=== PATIENT | female | born 1970 | race Caucasian/White ===

== ENCOUNTER → 2017-09-02 | Outpatient (CLI) | payer OTHER ==
[~2017-09-02] MED LIST: AMLO-114 PO; BUPR150T7 PO; CEFD1CAP14 PO; HYDR12.55 PO; PRLSR20 PO; TYLOTC500 PO
== END | disposition home or self-care (01) ==
LOC: C.LAB1850 13:22
PROVIDERS: ATTEND Physician Assistant
DX: E05.90 Thyrotoxicosis, unspecified without thyrotoxic crisis or storm (principal)

== ENCOUNTER → 2017-09-30 | Outpatient (CLI) | payer OTHER | END | disposition home or self-care (01) | LOC: C.LABBFT 14:46 | PROVIDERS: ATTEND Physician Assistant | DX: E05.00 Thyrotoxicosis with diffuse goiter without thyrotoxic crisis or storm (principal) ==

== ENCOUNTER → 2017-10-27 | Outpatient (CLI) | payer OTHER | END | disposition home or self-care (01) | LOC: C.LABBFT 11:51 | PROVIDERS: ATTEND Internal Medicine Endocrinology, Diabetes & Metabolism | DX: E05.90 Thyrotoxicosis, unspecified without thyrotoxic crisis or storm (principal) ==

== ENCOUNTER → 2017-11-11 | Outpatient (CLI) | payer OTHER | END | disposition home or self-care (01) | LOC: C.LABBFT 14:17 | PROVIDERS: ATTEND Internal Medicine Endocrinology, Diabetes & Metabolism | DX: E05.90 Thyrotoxicosis, unspecified without thyrotoxic crisis or storm (principal) ==

== ENCOUNTER → 2017-12-16 | Outpatient (CLI) | payer OTHER | END | disposition home or self-care (01) | LOC: C.LABBFT 08:23 | PROVIDERS: ATTEND Internal Medicine Endocrinology, Diabetes & Metabolism | DX: E05.90 Thyrotoxicosis, unspecified without thyrotoxic crisis or storm (principal) ==

== ENCOUNTER → 2018-03-02 | Outpatient (CLI) | payer OTHER ==
[~2018-03-02] MED LIST changes: -AMLO-114 PO; +AMLO10TA3 PO
== END | disposition home or self-care (01) ==
LOC: C.LABBFT 09:12
PROVIDERS: ATTEND Internal Medicine Endocrinology, Diabetes & Metabolism
DX: E05.00 Thyrotoxicosis with diffuse goiter without thyrotoxic crisis or storm (principal)

== ENCOUNTER → 2018-03-17 | Outpatient (CLI) | payer OTHER | END | disposition home or self-care (01) | LOC: C.LABBFT 14:33 | PROVIDERS: ATTEND Internal Medicine Endocrinology, Diabetes & Metabolism | DX: E05.90 Thyrotoxicosis, unspecified without thyrotoxic crisis or storm (principal) ==

== ENCOUNTER 2020-09-27 10:25 | Inpatient (IN) ==
--- NOTE | 2020-09-27 10:56 | Emergency Department Note ---
History of Present Illness General Chief complaint: Leg Injury/Pain Stated complaint: CELLULITIS IN RIGHT LEG Time Seen by Provider: 09/27/20 10:33 History of Present Illness Maximum Pain Intensity: 5 This is a 50-year-old female that presents to the emergency department via private vehicle with complaints of "cellulitis on right leg". The patient states that she was placed on Bactrim for what she believes was an upper respiratory tract infection and then notes the following day she developed right anterior lower leg cellulitis/rash. She notes that the same thing happened about a year ago. The rash developed about 7 days ago. She was placed on Keflex at that time and has been on both antibiotics up until yesterday when she finished the Bactrim but has been continuing the Keflex. She notes that the redness has not improved much during that time. She denies any fevers, chills, nausea or vomiting. She denies any other areas of redness or rashes to the body. She denies any lesions within the mouth or mucous membranes. She rates her overall discomfort the right lower extremity is a 5/10. She notes increased warmth to the area. She notes a large amount of swelling to the area as well. Home Medications Medication Instructions Recorded Confirmed Type hydrochlorothiazide 12.5 mg PO QAM 05/31/18 09/27/20 History omeprazole 20 mg PO PM 05/31/18 09/27/20 History albuterol sulfate [Ventolin HFA] 2 puff INHALATION Q6H PRN 02/20/19 09/27/20 History amlodipine 5 mg PO BID 09/27/20 09/27/20 History atenolol 25 mg PO DAILY PRN 09/27/20 09/27/20 History cephalexin 500 mg PO QID 09/27/20 09/27/20 History cholecalciferol (vitamin D3) 25 mcg PO PM 09/27/20 09/27/20 History [Vitamin D3] diphenhydramine-acetaminophen 1 tab PO HS PRN 09/27/20 09/27/20 History [Tylenol PM Extra Strength] fluticasone propionate 1 spray INTRANASAL DAILY PRN 09/27/20 09/27/20 History hydroxyzine HCl 25 mg PO HS PRN 09/27/20 09/27/20 History levothyroxine 175 mcg PO DAILYBB 09/27/20 09/27/20 History loratadine [Claritin] 10 mg PO PM 09/27/20 09/27/20 History meloxicam 15 mg PO PM 09/27/20 09/27/20 History Allergies Allergy/AdvReac Type Severity Reaction Status Date / Time clindamycin Allergy Severe HIVES Verified 02/20/19 10:32 lisinopril Allergy Intermediate COUGH Verified 02/20/19 10:32 amoxicillin Allergy Unknown Rash Verified 02/20/19 10:32 Penicillins Allergy Unknown Rash Verified 02/20/19 10:32 adhesive AdvReac Unknown TAPE Verified 02/20/19 10:32 SENSITIVITY Past Med/Surg History Medical History Anxiety Double vision REASON FOR PROCEDURE GERD (gastroesophageal reflux disease) Graves disease WITH EXOPHTHALMOS; ENDOCRINE MONITORING Hypertension Surgical History H/O tubal ligation History of section History of cholecystectomy History of laparoscopy History of myringotomy BILATERAL Hx of oral surgery Family History Sister Multiple sclerosis Mother Diabetes Hypertension Gout Father Stroke Social History Smoking Status: Former smoker Second Hand Exposure: No; Hx Alcohol Use: No Hx Substance Use: No Preferred Language: Zimbabwean Communication Ability: Effective Hand Cigar Maker Required: Yes Beliefs That Will Affect Care: None Current Living Situation: Family Feels Safe at Home: Yes Safety Concerns: Feels Safe At This Time Assistive Devices: Glasses Review of Systems A total of 10 systems reviewed and were otherwise negative Physical Exam Vital Signs Vital Signs - 24 hr 09/27/20 10:30 09/27/20 12:26 Temperature 36.5 C Temperature Source Temporal Artery Scan Pulse Rate 66 Pulse Rate [Apical] 71 Respiratory Rate 18 18 Respiratory Effort / Characteristics Non-Labored Respiratory Depth Normal Respiratory Pattern Regular Blood Pressure 169/88 H Blood Pressure [Right Arm] 170/80 H Blood Pressure Mean 115 Blood Pressure Mean [Right Arm] 110 Blood Pressure Position Sitting Pulse Oximetry 96 96 Oxygen Delivery Method Room Air Room Air Sepsis Recent Fever Within 48 Hours No Sepsis New/Unexplained Change in Mental Status No Sepsis Action Taken by Nursing No Action Required VITAL SIGNS - Vital signs and nursing notes were reviewed. Hypertensive, otherwise stable. GENERAL -50-year-old female appearing her stated age who is in no acute distress. Communicates well with provider and answers questions appropriately. SKIN -there is a diffuse area of erythema to the right anterior guan region i nferiorly. This does track medially and laterally overlying this region. There is a faint outline of purple skin marker and the erythema certainly has extended beyond this in some regions. There is no fluctuance or abscess but certainly there is increased warmth to the area and circumferential edema. HEAD - NC/AT. EYES - Sclera anicteric. EARS - No deformities of external structures noted on gross examination bilaterally. NOSE - Midline and without cyanosis. No epistaxis or purulent drainage noted. MOUTH/OROPHARYNX - Without perioral cyanosis. NECK - Neck with FROM. No nuchal rigidity. LUNGS - Chest wall symmetric without accessory muscle use, intercostals retractions, or central cyanosis. Normal vesicular breath sounds CTA B/L. No wheezes, rales, or rhonchi appreciated. CARDIAC - RRR with S1/S2. No murmur, rubs, or gallops appreciated. EXTREMITIES - No clubbing or peripheral cyanosis. Right lower extremity edema with skin noted as above. No break in the integument. No fluctuance or evidence of abscess. This does not seem to track proximal to the right knee. She is neurovascularly intact in the right lower extremity. +5/5 strength noted in UE/LE bilaterally. NEUROLOGIC - Cranial nerves II through XII grossly intact. PSYCH - A&O, and cooperates fully with examiner. Pt is very pleasant and interacts well with examiner. Course Administered Medications Discontinued Medications Amlodipine Besylate (Amlodipine Besylate 5 Mg Tab) 5 mg PO NOW ONE Stop: 09/27/20 13:45 Last Admin: 09/27/20 14:37 Dose: 5 mg Documented by: [id number] Hydrochlorothiazide (Hydrochlorothiazide 25 Mg Tab) 12.5 mg PO NOW STA Stop: 09/27/20 13:45 Last Admin: 09/27/20 14:37 Dose: 12.5 mg Documented by: [id number] Ceftriaxone Sodium (Rocephin) 2,000 mg in 70 mls @ 140 mls/hr IV NOW STA Stop: 09/27/20 12:44 Last Infusion: 09/27/20 13:11 Dose: 0 mls/hr Documented by: [id number] Admin: 09/27/20 12:41 Dose: 140 mls/hr Documented by: [id number] Medical Decision Making Laboratory Data Result diagrams: 09/27/20 10:50 09/27/20 10:50 Lab Results 09/27/20 09/27/20 09/27/20 Range/Units 10:50 10:50 10:50 WBC 9.02 (4.8-10.8) K/uL RBC 4.25 (4.2-5.4) M/uL Hgb 12.1 (12.0-16.0) g/dL Hct 35.8 L (37-47) % MCV 84.2 (80-100) fL MCH 28.5 (25-34) pg MCHC 33.8 (32-36) g/dL RDW Std Deviation 42.9 (36.4-46.3) fL RDW Coeff of Sylvain 14.0 (11.5-14.5) % Plt Count 369 (130-400) K/uL MPV 9.5 (7.4-10.4) fL Immature Gran % (Auto) 0.2 % Neut % (Auto) 70.3 % Lymph % (Auto) 21.7 % [place] % (Auto) 4.7 % Eos % (Auto) 2.8 % Baso % (Auto) 0.3 % Neut # (Auto) 6.34 (1.4-6.5) K/uL Lymph # (Auto) 1.96 (1.2-3.4) K/uL [place] # (Auto) 0.42 (0.11-0.59) K/uL Eos # (Auto) 0.25 (0-0.5) K/uL Baso # (Auto) 0.03 (0-0.2) K/uL Immature Gran # (Auto) 0.02 (0.00-0.02) K/uL ESR 57 H (0-21) mm/hr Sodium 140 (136-145) mmol/L Potassium 3.8 (3.5-5.1) mmol/L Chloride 109 H (98-107) mmol/L Carbon Dioxide 24 (21-32) mmol/L Anion Gap 7.0 (3-11) BUN 18 (7-18) mg/dl Creatinine 0.82 (0.6-1.2) mg/dl Est Cr Clr Drug Dosing 125.6 ml/min Est GFR ( Amer) 98.1 Est GFR (Non-Af Amer) 84.6 BUN/Creatinine Ratio 22.4 H (10-20) Glucose 99 (70-99) mg/dl Calcium 8.7 (8.5-10.1) mg/dl Total Bilirubin 0.2 (0.2-1) mg/dl AST 11 L (15-37) U/L ALT 18 (12-78) U/L Alkaline Phosphatase 85 (45-117) U/L C-Reactive Protein 3.01 H (0-0.29) mg/dl Total Protein 7.0 (6.4-8.2) gm/dl Albumin 3.2 L (3.4-5.0) gm/dl Globulin 3.8 (2.5-4.0) gm/dl Albumin/Globulin Ratio 0.8 L (0.9-2) COVID-19 Eval Order SARS-CoV-2, RNA, NAAT (NEGATIVE) 09/27/20 09/27/20 Range/Units 12:42 12:42 WBC (4.8-10.8) K/uL RBC (4.2-5.4) M/uL Hgb (12.0-16.0) g/dL Hct (37-47) % MCV (80-100) fL MCH (25-34) pg MCHC (32-36) g/dL RDW Std Deviation (36.4-46.3) fL RDW Coeff of Sylvain (11.5-14.5) % Plt Count (130-400) K/uL MPV (7.4-10.4) fL Immature Gran % (Auto) % Neut % (Auto) % Lymph % (Auto) % [place] % (Auto) % Eos % (Auto) % Baso % (Auto) % Neut # (Auto) (1.4-6.5) K/uL Lymph # (Auto) (1.2-3.4) K/uL [place] # (Auto) (0.11-0.59) K/uL Eos # (Auto) (0-0.5) K/uL Baso # (Auto) (0-0.2) K/uL Immature Gran # (Auto) (0.00-0.02) K/uL ESR (0-21) mm/hr Sodium (136-145) mmol/L Potassium (3.5-5.1) mmol/L Chloride (98-107) mmol/L Carbon Dioxide (21-32) mmol/L Anion Gap (3-11) BUN (7-18) mg/dl Creatinine (0.6-1.2) mg/dl Est Cr Clr Drug Dosing ml/min Est GFR ( Amer) Est GFR (Non-Af Amer) BUN/Creatinine Ratio (10-20) Glucose (70-99) mg/dl Calcium (8.5-10.1) mg/dl Total Bilirubin (0.2-1) mg/dl AST (15-37) U/L ALT (12-78) U/L Alkaline Phosphatase (45-117) U/L C-Reactive Protein (0-0.29) mg/dl Total Protein (6.4-8.2) gm/dl Albumin (3.4-5.0) gm/dl Globulin (2.5-4.0) gm/dl Albumin/Globulin Ratio (0.9-2) COVID-19 Eval [facility] SARS-CoV-2, RNA, NAAT POSITIVE A* (NEGATIVE) Imaging Data Radiologist's Impression: RIGHT LOWER EXTREMITY VENOUS DOPPLER CLINICAL HISTORY: Right leg pain. COMPARISON STUDY: Right lower extremity venous Doppler ultrasound June 16, 2015. TECHNIQUE: Sonography of the deep venous system of the right lower extremity was performed. Compression and augmentation were evaluated. FINDINGS: The right common femoral, superficial femoral and popliteal veins were compressible. Augmentation was normal. Flow was shown within the deep calf vessels. Note is made of a 3.3 x 2.5 x 1.1 cm right popliteal cyst. IMPRESSION: 1. No evidence of deep venous thrombus within the right lower extremity. 2. 3.3 x 2.5 x 1.1 cm suspected right popliteal cyst. ACT 112: Negative or not required by law. Electronically signed by: Simon Lopez M.D. 09/27/2020 11:53 AM MDM Narrative Patient was seen and evaluated as above in room C 11. Review was performed of nursing notes and vital signs. I did review pertinent previous visits and patient history. After obtaining a thorough history and physical examination the above work up was performed. Patient presents to us today with erythema to the right anterior distal right lower extremity. Vital signs were overall stable. She is nontoxic in appearance. Presentation most consistent with that of likely cellulitis with differential to include that of drug eruption/SJS from Bactrim. No evidence of SJS at this time. No mucous membrane involvement. Options of care were discussed with the patient. She is nontoxic on examination. IV access established. Labs were drawn. There is no leukocytosis or significant anemia. No emergent metabolic disturbance. Inflammatory markers are elevated. Covid testing performed secondary to possible inpatient management and this was found to be positive. Ultrasound negative for DVT. Patient notes that she did test positive in early July for COVID-19 and I suspect that this is likely residual from that time do not believe that she is acutely infectious with Covid. I do believe that the patient should be admitted for further evaluation and management to include IV antibiotics noting per sistence with very little improvement despite antibiotic course of the suspected cellulitis. At this time believe this to be most likely cellulitis. Patient amenable to plan of care. Case discussed with the hospitalist. Please refer to further documentation regarding her stay. Case was discussed with the attending physician. GCS: 15 In the evaluation and treatment of this patient the following differential diagnoses were entertained: Cellulitis, SJS, TENS, drug eruption, contact dermatitis, DVT, among others. Impression & Plan Cellulitis of right lower extremity Discharge Plan Visit Data Chief Complaint: Leg Injury/Pain Stated Complaint: CELLULITIS IN RIGHT LEG ED Provider: Pratik Arias ED Midlevel Provider: Emil Yu Discharge Problem: Cellulitis of right lower extremity Patient Disposition: Admitted As Inpatient Condition: Good Discharge Instructions Interventions: ED Discharge Assessment Last Done: 09/27/20 15:47
[2020-09-27 11:17] LABS: Basophils # (auto) 0.03 K/uL (0-0.2); Basophils % (auto) 0.3 %; Eosinophils # (auto) 0.25 K/uL (0-0.5); Eosinophils % (auto) 2.8 %; Hematocrit (blood only) 35.8 % (37-47); Hemoglobin 12.1 g/dL (12.0-16.0); Immature Granulocytes # (auto) 0.02 K/uL (0.00-0.02); Immature Granulocytes % (auto) 0.2 %; Lymphocytes # (auto) 1.96 K/uL (1.2-3.4); Lymphocytes % (auto) 21.7 %; Mean Corpuscular Hemoglobin 28.5 pg (25-34); Mean Corpuscular Hgb Conc 33.8 g/dL (32-36); Mean Corpuscular Volume 84.2 fL (80-100); Mean Platelet Volume 9.5 fL (7.4-10.4); Monocytes # (auto) 0.42 K/uL (0.11-0.59); Monocytes % (auto) 4.7 %; Neutrophils # (auto) 6.34 K/uL (1.4-6.5); Neutrophils % (auto) 70.3 %; Platelet Count 369 K/uL (130-400); RDW Standard Deviation 42.9 fL (36.4-46.3); Red Blood Count 4.25 M/uL (4.2-5.4); White Blood Count 9.02 K/uL (4.8-10.8)
[2020-09-27 11:48] LABS: Albumin Level 3.2 gm/dl (3.4-5.0); BUN Creatinine Ratio 22.4 (10-20); C Reactive Protein 3.01 mg/dl (0-0.29); Calcium 8.7 mg/dl (8.5-10.1); Creatinine Clr Calc Pharmacy 125.6 ml/min; Est GFR (African American) 98.1; Est GFR (Non-African American) 84.6; Potassium 3.8 mmol/L (3.5-5.1)
[2020-09-27 11:50] LABS: Albumin Globulin Ratio 0.8 (0.9-2); Bilirubin,Total 0.2 mg/dl (0.2-1); Globulin 3.8 gm/dl (2.5-4.0)
--- NOTE | 2020-09-27 11:54 | Ultrasound Report ---
RIGHT LOWER EXTREMITY VENOUS DOPPLER CLINICAL HISTORY: Right leg pain. COMPARISON STUDY: Right lower extremity venous Doppler ultrasound June 16, 2015. TECHNIQUE: Sonography of the deep venous system of the right lower extremity was performed. Compress ion and augmentation were evaluated. FINDINGS: The right common femoral, superficial femoral and popliteal veins were compressible. Augme ntation was normal. Flow was shown within the deep calf vessels. Note is made of a 3.3 x 2.5 x 1.1 cm right popliteal cyst. IMPRESSION: 1. No evidence of deep venous thrombus within the right lower extremity. 2. 3.3 x 2.5 x 1.1 cm suspected right popliteal cyst. ACT 112: Negative or not required by law. Electronically signed by: Simon Lopez M.D. 09/27/2020 11:53 AM
[2020-09-27] MEDS ORDERED: cefTRIAXone SODIUM 2,000 MG/70 ML BAG IV STA (12:15)
--- NOTE | 2020-09-27 13:43 | History & Physical Report ---
Date of Service September 27, 2020 Assessment & Plan (1) Cellulitis of right lower extremity: Pt is 50 y/o F with PMH Graves disease, HTN, anxiety presented to ER with c/o right leg redness x 1 week. Was treated with Bactrim for sinusitis starting on 09/19/20 and following day developed right leg redness. No significant improvement with 5 days of Keflex. Finished Bactrim yesterday. Denies fever/chills. RLE appears consistent with cellulitis. DDX: Drug reaction from Bactrim Afebrile, Vitals stable. No leukocytosis. ESR: 57, CRP: 3 Doppler RLE negative for DVT In ER treated with ceftriaxone IV Will continue ceftriaxone Pt now off Bactrim. Continue to monitor for any additional rashes or worsening. If would develop consider steroids for drug reaction CBC, BMP in am (2) History of COVID-19: Pt with h/o testing positive COVID 19 in 07/12/2020 Todays preadmission covid test positive, likely secondary to recent infection in 07/2020 (3) Hypertension: Pt didn't have meds today Dose morning meds Continue amlodipine, HCTZ (4) Graves disease: S/P surgery. On replacement therapy Continue levothyroxine (5) GERD (gastroesophageal reflux disease): Continue PPI DVT Prophylaxis -Low risk, Ambulate Full Code as per discussion with pt Follows with Dr Bobbi Mathews for routine care Pt was seen and care coordinated with Dr Hernandez. See addendum History of Present Illness Chief Complaint: Right leg redness Primary Care Provider: Dr Bobbi Mathews Pt is 50 y/o F with PMH Graves disease, HTN, anxiety presented to ER with c/o right leg redness. Pt with h/o sinusitis symptoms 2 weeks ago and was treated with doxycycline without relief. Was started on Bactrim 09/19/20. The following day started with redness to right lower leg. Was seen at urgent care and started on Keflex as well. Noted some minimal improvement of leg erythema however is still present. Finished Bactrim yesterday. Has had 5 days of Keflex. Denies fever/chills. Leg is tender to palpation. Denies injury/trauma. Reports nasal congestion has completely resolved. Pt reports prior history developing leg redness after taking Bactrim one year ago as well. Denies fever/chills, diaphoresis, N/V/D/C, ZEPEDA, dizziness, syncope, vision changes, neck pain, CP, SOB, orthopnea, palpitations, cough, sore throat, choking, otalgia, rhinorrhea, abdominal pain, paresthesias, weakness, extremity weakness, other rashes, urinary symptoms. Pt with h/o testing positive COVID 19 in 07/12/2020. Allergies Allergy/AdvReac Type Severity Reaction Status Date / Time clindamycin Allergy Severe HIVES Verified 02/20/19 10:32 lisinopril Allergy Intermediate COUGH Verified 02/20/19 10:32 amoxicillin Allergy Unknown Rash Verified 02/20/19 10:32 Penicillins Allergy Unknown Rash Verified 02/20/19 10:32 adhesive AdvReac Unknown TAPE Verified 02/20/19 10:32 SENSITIVITY Home Medications Medication Instructions Recorded Confirmed Type hydrochlorothiazide 12.5 mg PO QAM 05/31/18 09/27/20 History omeprazole 20 mg PO PM 05/31/18 09/27/20 History albuterol sulfate [Ventolin HFA] 2 puff INHALATION Q6H PRN 02/20/19 09/27/20 History amlodipine 5 mg PO BID 09/27/20 09/27/20 History atenolol 25 mg PO DAILY PRN 09/27/20 09/27/20 History cephalexin 500 mg PO QID 09/27/20 09/27/20 History cholecalciferol (vitamin D3) 25 mcg PO PM 09/27/20 09/27/20 History [Vitamin D3] diphenhydramine-acetaminophen 1 tab PO HS PRN 09/27/20 09/27/20 History [Tylenol PM Extra Strength] fluticasone propionate 1 spray INTRANASAL DAILY PRN 09/27/20 09/27/20 History hydroxyzine HCl 25 mg PO HS PRN 09/27/20 09/27/20 History levothyroxine 175 mcg PO DAILYBB 09/27/20 09/27/20 History loratadine [Claritin] 10 mg PO PM 09/27/20 09/27/20 History meloxicam 15 mg PO PM 09/27/20 09/27/20 History Past Med/Surg History Medical History (Updated 09/27/20 @ 14:10 by Savannah Negron PA-C) Anxiety Double vision REASON FOR PROCEDURE GERD (gastroesophageal reflux disease) Graves disease WITH EXOPHTHALMOS; ENDOCRINE MONITORING Hypertension Surgical History H/O tubal ligation History of section History of cholecystectomy History of laparoscopy History of myringotomy BILATERAL Hx of oral surgery Family History Sister Multiple sclerosis Mother Diabetes Hypertension Gout Father Stroke Social History Smoking Status: Never smoker Second Hand Exposure: No; Hx Alcohol Use: No Hx Substance Use: No Preferred Language: Portuguese Communication Ability: Effective Manager Financial Services Required: Yes Beliefs That Will Affect Care: None Current Living Situation: Spouse and Family Feels Safe at Home: Yes Assistive Devices: Glasses Review of Systems Review of Systems: All systems reviewed & are unremarkable except as noted in HPI & below Physical Exam Physical Exam: General: no distress, obese Head: normocephalic, atraumatic Eyes: conjunctiva non-injected, anicteric ENT: normal inspection external ears, nose, mucous membranes moist; no lesions noted Neck: supple, trachea midline Lungs: clear, no respiratory distress, no wheezing/rhonchi/rales CV: RRR, no murmur, no pretibial edema Abd: normal BS, soft, non-tender Ext: no cyanosis, ROM intact Neuro: A&O x 3, no focal deficits noted, normal affect Skin: RLE: right lower leg with erythema, mild warmth and mild tenderness to f irm palpation without discharge or red streaking, RLE appears similar size to left lower extremity, otherwise skin warm, dry Results & Data Results & Data ([facility]) Vital Signs (Past 12 Hours) Vital Signs Temp Pulse Pulse Resp BP BP Pulse Ox 09/27/20 12:26 71 18 170/80 H 96 09/27/20 10:30 36.5 C 66 18 169/88 H 96 Laboratory Results Short CBC 09/27/20 Range/Units 10:50 WBC 9.02 (4.8-10.8) K/uL Hgb 12.1 (12.0-16.0) g/dL Hct 35.8 L (37-47) % Plt Count 369 (130-400) K/uL BMP 09/27/20 10:50 Sodium 140 Potassium 3.8 Chloride 109 H Carbon Dioxide 24 BUN 18 Creatinine 0.82 Glucose 99 Calcium 8.7 Liver Function 09/27/20 Range/Units 10:50 Total Bilirubin 0.2 (0.2-1) mg/dl AST 11 L (15-37) U/L ALT 18 (12-78) U/L Alkaline Phosphatase 85 (45-117) U/L Albumin 3.2 L (3.4-5.0) gm/dl Diagnostic Findings DOPPLER RLE: IMPRESSION: 1. No evidence of deep venous thrombus within the right lower extremity. 2. 3.3 x 2.5 x 1.1 cm suspected right popliteal cyst. Supervising Physician Co-Signing Physician Notes History and physical exam performed by me. Detailed history as documented by Savannah Negron PA-C, notable for right leg redness after starting Bactrim for URI symptoms. No fevers, chills, nausea vomiting, cough, chest pain, diarrhea Reports URI symptoms are improving Physical exam notable for right lower leg with erythema and mild tenderness. -Right lower extremity cellulitis Differential include drug rash from Bactrim as patient reported having 'cellulitis' after taking Bactrim a year ago. She also reports that her sister develops rash when she takes Bactrim We will mohit erythematous site and treat with IV ceftriaxone for now since patient did not do well with outpatient treatment Other plans as documented above
[2020-09-27] MEDS ORDERED: hydroCHLOROthiazide 25 MG TAB PO STA (13:44)
[2020-09-27] MEDS ORDERED: amLODIPine BESYLATE 5 MG TAB PO ONE (13:44)
[2020-09-27] MEDS ORDERED: ATENOLOL 25 MG TABLET PO PRN (16:03)
[2020-09-27] MEDS ORDERED: ONDANSETRON INJ 2 MG/ML 2 ML VIAL IV PRN (16:03)
[2020-09-27] MEDS ORDERED: POLYETHYLENE (MIRALAX) 17 GM PACK PO PRN (16:03)
[2020-09-27] MEDS ORDERED: ALBUTEROL HFA 8 GM INHALER INH PRN (16:03)
[2020-09-27] MEDS ORDERED: FLUTICASONE PROPIONATE NA SPR 16 GM BTL NAE PRN (16:03)
[2020-09-27] MEDS ORDERED: ACETAMINOPHEN 325 MG TAB PO PRN (16:03)
[2020-09-27] MEDS ORDERED: hydrOXYzine HCl 25 MG TAB PO PRN (16:03)
[2020-09-27] MEDS ORDERED: diphenhydrAMINE Capsule 25 MG CAP PO PRN (16:30)
[2020-09-27 17:51] LABS: Appearance Urine Clear (Clear); Bilirubin Urine Negative (Negative); Blood Urine Negative (Negative); Color Urine Orange; Glucose Urine UA Negative (Negative); Ketones Urine Negative (Negative); Leukocyte Esterase Urine Negative (Negative); Nitrite Urine Negative (Negative); Protein Urine Negative (Negative); Specific Gravity Urine 1.017 (1.000-1.030); Urobilinogen Urine Negative (Negative)
[2020-09-27] MEDS: LORATADINE 10 MG TAB PO SCH (20:34)
[2020-09-27] MEDS: MELOXICAM 7.5 MG TAB PO SCH (20:34)
[2020-09-27] MEDS: CHOLECALCIFEROL 1,000 UNITS 25 MCG TAB PO SCH (20:35)
[2020-09-27] MEDS: amLODIPine BESYLATE 5 MG TAB PO SCH (20:35)
[2020-09-27] MEDS: PANTOprazole 40 MG TAB PO SCH (20:36)
[2020-09-28 05:57] LABS: Hematocrit (blood only) 35.7 % (37-47); Hemoglobin 12.2 g/dL (12.0-16.0); Mean Corpuscular Hemoglobin 28.5 pg (25-34); Mean Corpuscular Hgb Conc 34.2 g/dL (32-36); Mean Corpuscular Volume 83.4 fL (80-100); Mean Platelet Volume 9.6 fL (7.4-10.4); Platelet Count 381 K/uL (130-400); RDW Standard Deviation 42.1 fL (36.4-46.3); Red Blood Count 4.28 M/uL (4.2-5.4)
[2020-09-28] MEDS: LEVOTHYROXINE SODIUM 175 MCG TABLET PO SCH (06:12)
[2020-09-28 07:07] LABS: BUN Creatinine Ratio 18.4 (10-20); Calcium 8.7 mg/dl (8.5-10.1); Creatinine Clr Calc Pharmacy 158.4 ml/min; Est GFR (African American) 121.7; Potassium 3.8 mmol/L (3.5-5.1)
[2020-09-28] MEDS: hydroCHLOROthiazide 25 MG TAB PO SCH (08:21)
[2020-09-28] MEDS: amLODIPine BESYLATE 5 MG TAB PO SCH ×2 (08:22→20:04)
--- NOTE | 2020-09-28 09:14 | Hospitalist Progress Note ---
Date of Service September 28, 2020 Assessment & Plan (1) Cellulitis of right lower extremity: 50 y/o F with PMH Graves disease, HTN, anxiety presented to ER with c/o right leg redness x 1 week. Was treated with Bactrim for sinusitis starting on 09/19/20 and following day developed right leg redness. No significant improvement with 5 days of Keflex. Being treated for right lower extremity cellulitis after failed outpatient therapy. Another possible differential is drug rash from Bactrim as patient reported having 'cellulitis' after taking Bactrim a year ago. She also reports that her sister develops rash when she takes Bactrim Continue ceftriaxone iv (2) History of COVID-19: Pt with h/o testing positive COVID 19 in 07/12/2020 Admission covid test positive, likely secondary to recent infection in 07/2020 (3) Hypertension: Continue amlodipine, HCTZ (4) Graves disease: S/P surgery. On replacement therapy Continue levothyroxine (5) GERD (gastroesophageal reflux disease): Continue PPI DVT Prophylaxis- Ambulate Admission and Anticipated Discharge Date Admission Date: September 27, 2020 Subjective Patient seen and examined. Reports mild improvement of the redness and pain. No fevers, chills, nausea, vomiting No cough, chest pain, shortness of breath Reports that her URI symptoms continue to improve Denied abdominal pain, diarrhea, constipation Physical Exam Constitutional: + well hydrated and + obese; no acute distress Eyes: PERRL, conjunctivae normal, anicteric sclerae ENMT: external ear and nose normal, oropharynx normal Respiratory: normal respiratory effort, lungs clear to auscultation Cardiovascular: Rate/Rhythm: regular rate and regular rhythm Heart Sounds: normal S1 and normal S2 Gastrointestinal (Abdomen): normal bowel sounds, soft, nontender, no hepatosplenomegaly Musculoskeletal: Right lower extremity erythema with mild tenderness, within markings. No edema Neurologic: PERRL, EOMI, accommodation nl, no face palsy, no dysarthria Psychiatric: A+Ox3, euthymic affect Results & Data Results & Data ([facility]) Vital Signs (Past 12 Hours) Vital Signs Temp Pulse Resp BP Pulse Ox 09/28/20 09:08 36.7 C 67 16 142/79 H 95 09/27/20 21:45 36.5 C 62 16 133/75 94
[2020-09-28] MEDS: cefTRIAXone SODIUM 2,000 MG in DEXTROSE 5% 50 ML IV SCH (12:52)
[2020-09-28] MEDS: LORATADINE 10 MG TAB PO SCH (20:05)
[2020-09-28] MEDS: PANTOprazole 40 MG TAB PO SCH (20:05)
[2020-09-28] MEDS: MELOXICAM 7.5 MG TAB PO SCH (20:05)
[2020-09-28] MEDS: CHOLECALCIFEROL 1,000 UNITS 25 MCG TAB PO SCH (20:07)
[2020-09-29] MEDS: LEVOTHYROXINE SODIUM 175 MCG TABLET PO SCH (05:50)
[2020-09-29] MEDS: amLODIPine BESYLATE 5 MG TAB PO SCH ×2 (07:44→20:30)
[2020-09-29] MEDS: hydroCHLOROthiazide 25 MG TAB PO SCH (07:44)
[2020-09-29] MEDS ORDERED: hydroCHLOROthiazide 25 MG TAB PO ONE (08:00)
--- NOTE | 2020-09-29 09:34 | Hospitalist Progress Note ---
Date of Service September 29, 2020 Assessment & Plan (1) Cellulitis of right lower extremity: 50 y/o F with PMH Graves disease, HTN, anxiety presented to ER with c/o right leg redness x 1 week. Was treated with Bactrim for sinusitis starting on 09/19/20 and following day developed right leg redness. No significant improvement with 5 days of Keflex. Being treated for right lower extremity cellulitis after failed outpatient therapy. Another possible differential is drug rash from Bactrim as patient reported having 'cellulitis' after taking Bactrim a year ago. She also reports that her sister develops rash when she takes Bactrim Failed outpatient therapy Continue iv ceftriaxone (2) History of COVID-19: Pt with h/o testing positive COVID 19 in 07/12/2020 Admission covid test positive, likely secondary to recent infection in 07/2020 (3) Hypertension: Continue amlodipine, HCTZ (4) Graves disease: S/P surgery. On replacement therapy Continue levothyroxine (5) GERD (gastroesophageal reflux disease): Continue PPI DVT Prophylaxis- Ambulate Admission and Anticipated Discharge Date Admission Date: September 27, 2020 Subjective Patient seen and examined. Reports that right leg pain is improving No fevers, chills, nausea, vomiting Physical Exam Constitutional: + well hydrated and + obese; no acute distress Eyes: PERRL, conjunctivae normal, anicteric sclerae ENMT: external ear and nose normal, oropharynx normal Respiratory: normal respiratory effort, lungs clear to auscultation Cardiovascular: Rate/Rhythm: regular rate and regular rhythm Heart Sounds: normal S1 and normal S2 Gastrointestinal (Abdomen): normal bowel sounds, soft, nontender, no hepatosplenomegaly Musculoskeletal: Right lower extremity erythema with mild tenderness, improved No edema Neurologic: PERRL, EOMI, accommodation nl, no face palsy, no dysarthria Psychiatric: A+Ox3, euthymic affect Results & Data Results & Data ([facility]) Vital Signs (Past 12 Hours) Vital Signs Temp Pulse Resp BP BP Pulse Ox 09/29/20 08:51 148/83 H 09/29/20 06:54 36.3 C L 66 16 179/94 H 93 09/28/20 22:44 36.8 C 68 16 159/77 H 96
[2020-09-29] MEDS: cefTRIAXone SODIUM 2,000 MG in DEXTROSE 5% 50 ML IV SCH (11:48)
[2020-09-29] MEDS: LORATADINE 10 MG TAB PO SCH (20:30)
[2020-09-29] MEDS: MELOXICAM 7.5 MG TAB PO SCH (20:30)
[2020-09-29] MEDS: CHOLECALCIFEROL 1,000 UNITS 25 MCG TAB PO SCH (20:31)
[2020-09-29] MEDS: PANTOprazole 40 MG TAB PO SCH (20:31)
[2020-09-30] MEDS: LEVOTHYROXINE SODIUM 175 MCG TABLET PO SCH (06:07)
[2020-09-30] MEDS: hydroCHLOROthiazide 25 MG TAB PO SCH (08:15)
[2020-09-30] MEDS: amLODIPine BESYLATE 5 MG TAB PO SCH ×2 (08:15→21:34)
[2020-09-30] MEDS: cefTRIAXone SODIUM 2,000 MG in DEXTROSE 5% 50 ML IV SCH (12:07)
--- NOTE | 2020-09-30 13:34 | Hospitalist Progress Note ---
Date of Service September 30, 2020 Assessment & Plan (1) Cellulitis of right lower extremity: 50 y/o F with PMH Graves disease, HTN, anxiety presented to ER with c/o right leg redness x 1 week. Was treated with Bactrim for sinusitis starting on 09/19/20 and following day developed right leg redness. No significant improvement with 5 days of Keflex. Being treated for right lower extremity cellulitis after failed outpatient therapy. Another possible differential though less liklely is drug rash from Bactrim as patient reported having 'cellulitis' after taking Bactrim a year ago. She also reports that her sister develops rash when she takes Bactrim Failed outpatient therapy Continue iv ceftriaxone Day 3 Cellulitis appear to be improving (2) History of COVID-19: Pt with h/o testing positive COVID 19 in 07/12/2020 Admission covid test positive, likely secondary to recent infection in 07/2020 (3) Hypertension: Continue amlodipine HCTZ was increased to 25mg daily (4) Graves disease: S/P surgery. On replacement therapy Continue levothyroxine (5) GERD (gastroesophageal reflux disease): Continue PPI DVT Prophylaxis- Ambulate Dispo - Possible discharge tomorrow Admission and Anticipated Discharge Date Admission Date: September 29, 2020 Subjective Patient seen and examined. Patient reports significant improvement in right lower leg pain. Also notes improvement in in rash. No fevers, chills, nausea vomiting Physical Exam Constitutional: + well hydrated and + obese; no acute distress Eyes: PERRL, conjunctivae normal, anicteric sclerae ENMT: external ear and nose normal, oropharynx normal Respiratory: normal respiratory effort, lungs clear to auscultation Cardiovascular: Rate/Rhythm: regular rate and regular rhythm Heart Sounds: normal S1 and normal S2 Gastrointestinal (Abdomen): normal bowel sounds, soft, nontender, no hepatosplenomegaly Musculoskeletal: Right lower extremity erythema continue to improve, less than marked area No tenderness Neurologic: PERRL, EOMI, accommodation nl, no face palsy, no dysarthria Psychiatric: A+Ox3, euthymic affect Results & Data Results & Data ([facility]) Vital Signs (Past 12 Hours) Vital Signs Temp Pulse Resp BP Pulse Ox 09/30/20 07:33 36.4 C L 60 16 152/87 H 93
[2020-09-30] MEDS: CHOLECALCIFEROL 1,000 UNITS 25 MCG TAB PO SCH (21:34)
[2020-09-30] MEDS: LORATADINE 10 MG TAB PO SCH (21:34)
[2020-09-30] MEDS: PANTOprazole 40 MG TAB PO SCH (21:34)
[2020-09-30] MEDS: MELOXICAM 7.5 MG TAB PO SCH (21:34)
[2020-10-01] MEDS: LEVOTHYROXINE SODIUM 175 MCG TABLET PO SCH (05:42)
[2020-10-01 06:16] LABS: Calcium 8.7 mg/dl (8.5-10.1); Creatinine Clr Calc Pharmacy 135.5 ml/min; Est GFR (African American) 107.5; Est GFR (Non-African American) 92.8; Potassium 3.7 mmol/L (3.5-5.1)
[2020-10-01] MEDS: hydroCHLOROthiazide 25 MG TAB PO SCH (08:32)
[2020-10-01] MEDS: amLODIPine BESYLATE 5 MG TAB PO SCH (08:32)
[2020-10-01] MEDS: cefTRIAXone SODIUM 2,000 MG in DEXTROSE 5% 50 ML IV SCH (10:56)
--- NOTE | 2020-10-01 11:08 | Discharge Summary ---
Date of Service October 01, 2020 Admission HPI Per Admitting Provider Pt is 50 y/o F with PMH Graves disease, HTN, anxiety presented to ER with c/o right leg redness. Pt with h/o sinusitis symptoms 2 weeks ago and was treated with doxycycline without relief. Was started on Bactrim 09/19/20. The following day started with redness to right lower leg. Was seen at urgent care and started on Keflex as well. Noted some minimal improvement of leg erythema however is still present. Finished Bactrim yesterday. Has had 5 days of Keflex. Denies fever/chills. Leg is tender to palpation. Denies injury/trauma. Reports nasal congestion has completely resolved. Pt reports prior history developing leg redness after taking Bactrim one year ago as well. Denies fever/chills, diaphoresis, N/V/D/C, ZEPEDA, dizziness, syncope, vision changes, neck pain, CP, SOB, orthopnea, palpitations, cough, sore throat, choking, otalgia, rhinorrhea, abdominal pain, paresthesias, weakness, extremity weakness, other rashes, urinary symptoms. Pt with h/o testing positive COVID 19 in 07/12/2020. Admission Exam Per Admitting Provider General: no distress, obese Head: normocephalic, atraumatic Eyes: conjunctiva non-injected, anicteric ENT: normal inspection external ears, nose, mucous membranes moist; no lesions noted Neck: supple, trachea midline Lungs: clear, no respiratory distress, no wheezing/rhonchi/rales CV: RRR, no murmur, no pretibial edema Abd: normal BS, soft, non-tender Ext: no cyanosis, ROM intact Neuro: A&O x 3, no focal deficits noted, normal affect Skin: RLE: right lower leg with erythema, mild warmth and mild tenderness to firm palpation without discharge or red streaking, RLE appears similar size to left lower extremity, otherwise skin warm, dry Principal Diagnosis Right leg cellulitis Discharge Exam Constitutional + well hydrated and + obese; no acute distress Eyes PERRL, conjunctivae normal, anicteric sclerae ENMT external ear and nose normal, oropharynx normal Respiratory normal respiratory effort, lungs clear to auscultation Cardiovascular Rate/Rhythm: regular rate and regular rhythm Heart Sounds: normal S1 and normal S2 Gastrointestinal (Abdomen) normal bowel sounds, soft, nontender, no hepatosplenomegaly Musculoskeletal Right lower extremity erythema with mild tenderness, much improved No edema Neurologic PERRL, EOMI, accommodation nl, no face palsy, no dysarthria Psychiatric A+Ox3, euthymic affect Discharge Data Allergies Allergy/AdvReac Type Severity Reaction Status Date / Time clindamycin Allergy Severe HIVES Verified 02/20/19 10:32 lisinopril Allergy Intermediate COUGH Verified 02/20/19 10:32 amoxicillin Allergy Unknown Rash Verified 02/20/19 10:32 Penicillins Allergy Unknown Rash Verified 02/20/19 10:32 adhesive AdvReac Unknown TAPE Verified 02/20/19 10:32 SENSITIVITY Consultations 09/27/20 12:40 ED Decision to Admit Stat Ordered Studies 09/27/20 10:43 US venous doppler LE RT Stat The right common femoral, superficial femoral and popliteal veins were compressible. Augmentation was normal. Flow was shown within the deep calf vessels. Note is made of a 3.3 x 2.5 x 1.1 cm right popliteal cyst. IMPRESSION: 1. No evidence of deep venous thrombus within the right lower extremity. 2. 3.3 x 2.5 x 1.1 cm suspected right popliteal cyst. Hospital Course (1) Cellulitis of right lower extremity: 50 y/o F with PMH Graves disease, HTN, anxiety presented to ER with c/o right leg redness x 1 week. Was treated with Bactrim for sinusitis starting on 09/19/20 and following day developed right leg redness. No significant improvement with 5 days of Keflex. Was treated for right lower extremity cellulitis after failed outpatient therapy. Another possible differential though less liklely is drug rash from Bactrim as patient reported having 'cellulitis' after taking Bactrim a year ago. She also reports that her sister develops rash when she takes Bactrim Failed outpatient therapy Treated with IV ceftriaxone inpatient Discharged to continue keflex for 2 more days to complete therapy Cellulitis much improved (2) History of COVID-19: Pt with h/o testing positive COVID 19 in 07/12/2020 Admission covid test positive, likely secondary to recent infection in 07/2020 (3) Hypertension: Continue amlodipine HCTZ was increased to 25mg daily for better BP control (4) Graves disease: S/P surgery. On replacement therapy Continue levothyroxine (5) GERD (gastroesophageal reflux disease): Continue PPI Total Time Total Time Spent Total Time Spent (In Minutes): 35 Total Time Includes: Examination of the Patient, Discharge Planning and Med ication Reconciliation Discharge Plan Discharge Items Patient Disposition: Home - Self-Care Reason For Visit: CELLULITIS LEG Discharge Diagnosis: Right leg cellulitis Condition on Discharge: Good Activity: Resume your previous activity Non-emergency contact: Primary Care Provider Call non-emergency contact if: you have any medication questions and your symptoms worsen Follow-up/Referrals: Bobbi Mathews DO [Primary Care Provider] - 10/07/20 11:10 am (Date & Time 10/07/2020 11:10 AM Provider Bobbi Mathews DO Department [facility] ) Diet: Heart Healthy and Low Fat Addtl Attending Provider Instructions: Mrs Sims. You came to the hospital complaining of right leg redness and pain that has been worsening despite outpatient treatment. You were admitted and started on iv antibiotics. Your symptoms started to improve. You can take the keflex you have at home for 2 more days to complete treatment. Your hydrochlorothiazide was increased to 25mg daily for better blood pressure control. This was sent to your Pharmacy Please continue to take your medications as prescribed. Please follow up with your Primary Doctor. It was a pleasure taking care of you. Pending Studies at Discharge: No Stand-Alone Forms: [facility], Work/School Release (Inpt), Smoking Cessation Medications and DC Order Prescriptions: Continued omeprazole 20 mg Capsule,Delayed Release(Dr/Ec) 20 mg PO PM RF: 0 albuterol sulfate [Ventolin HFA] 90 mcg/actuation Hfa Aerosol Inhaler 2 puff INHALATION Q6H PRN (Reason: Shortness Of Breath Or Wheezing) RF: 0 meloxicam 15 mg tablet 15 mg PO PM RF: 0 amlodipine 5 mg Tablet 5 mg PO BID RF: 0 hydroxyzine HCl 25 mg tablet 25 mg PO HS PRN (Reason: Anxiety) RF: 0 diphenhydramine-acetaminophen [Tylenol PM Extra Strength] 25-500 mg Tablet 1 tab PO HS PRN (Reason: Sleep) RF: 0 fluticasone propionate 50 mcg/actuation spray,suspension 1 spray INTRANASAL DAILY PRN (Reason: Nasal Congestion) RF: 0 cholecalciferol (vitamin D3) [Vitamin D3] 25 mcg (1,000 unit) Capsule 25 mcg PO PM RF: 0 levothyroxine 175 mcg tablet 175 mcg PO DAILYBB RF: 0 atenolol 25 mg tablet 25 mg PO DAILY PRN (Reason: heart palpitations) RF: 0 loratadine [Claritin] 10 mg Tablet 10 mg PO PM RF: 0 cephalexin 500 mg capsule 500 mg PO QID 2 Days Qty: 0 RF: 0 Changed hydrochlorothiazide 12.5 mg Capsule 25 mg PO QAM 30 Days Qty: 60 RF: 0 Discharge Orders: Discharge Order (Routine); Ordered 10/01/20 Ordered By: Deisy Hernandez Admission Data Admit Date/Time: 09/29/20 12:27 Attending Provider: Deisy Hernandez I. Admit Provider: Deisy Hernandez I. Primary Care Provider: Bobbi Mathews Other Providers: Deisy Hernandez I. Other Interventions: Discharge Summary Assessment (RN) Last Done: 10/01/20 11:08
== END 2020-10-01 12:18 | disposition home or self-care (01) | DRG 603 ==
LOC: 3E 10:25 → ED 10:25 → 3E 15:47